=== PATIENT | female | born 1945 | race Asian ===

== ENCOUNTER → 2018-12-28 | Emergency (ER) | payer OTHER ==
--- NOTE | 2018-12-28 06:12 | PDOC ---
ED Treatment Course - LABORATORY CBC & Chemistry Diagram: 12/28/18 03:05 12/28/18 03:05 Medical Decision Making - Medical Decision Making 12/28/18 06:12 Patient seen by the advanced practice provider under my direct supervision. Ancillary testing reviewed as necessary. I agree with plan as outlined by the advanced practice provider. *DC/Admit/Observation/Transfer Diagnosis at time of Disposition: Cystitis - Discharge Dispostion Condition at time of disposition: Stable - Prescriptions Prescriptions: Cephalexin [Keflex] 500 mg PO BID #20 capsule - Referrals - Patient Instructions Printed Discharge Instructions: DI for Acute Cystitis - Post Discharge Activity
--- NOTE | 2018-12-28 06:42 | PDOC ---
History of Present Illness - General Time Seen by Provider: 12/28/18 06:11 - History of Present Illness Initial Comments: 12/28/18 06:39 CHIEF COMPLAINT: HISTORY OF PRESENT ILLNESS: 73 yo F with hx of IDDM and HTN presents to ED with lower abd pain and difficulty urinating x 5 days. Patient states she has experienced discomfort with urination and has not been able to produce much urine. She denies fever, chills, N/V/D but c/o of lower abd discomfort. No recent travel or sick contacts. PAST MEDICAL HISTORY: Denies past medical history FAMILY HISTORY: Denies SOCIAL HISTORY: Denies tobacco, alcohol, illicit drug use. SURGICAL HISTORY: Denies ALLERGIES: No known drug allergies REVIEW OF SYSTEMS General/Constitutional: Denies fever or chills. Denies weakness, weight change. HEENT: Denies change in vision. Denies ear pain or discharge. Denies sore throat. Cardiovascular: Denies chest pain or shortness of breath. Respiratory: Denies cough, wheezing, or hemoptysis. Gastrointestinal: Denies nausea, vomiting, diarrhea or constipation. Denies rectal bleeding. Genitourinary: Dysuria, difficulty urinating. Musculoskeletal: Denies joint or muscle swelling or pain. Denies neck or back pain. Skin and breasts: Denies rash or easy bruising. PHYSICAL EXAM General Appearance: Well-appearing, appropriately dressed. No apparent distress , no intoxication. HEENT: EOMI, PERRLA, normal ENT inspection, normal voice, TMs normal, pharynx normal. No conjunctival pallor. No photophobia, scleral icterus. Neck: Supple. Trachea midline. No tenderness, rigidity, carotid bruit, stridor , lymphadenopathy, or thyromegaly. Respiratory/Chest: Lungs CTAB. No shortness of breath, chest tenderness, respiratory distress, accessory muscle use. No crackles, rales, rhonchi, stridor , wheezing, dullness Cardiovascular: RRR. S1, S2. No JVD, murmur, bradycardia, tachycardia. Vascular Pulses: Dorsalis-Pedis (R): 2+, Dorsalis-Pedis (L): 2+ Gastrointestinal/Abdominal: Mild lower abd tenderness. Normal bowel sounds. Abdomen soft, non-distended. No tenderness or rebound tenderness. No organomegaly, pulsatile mass, guarding, hernia, hepatomegaly, splenomegaly. Lymphatic: No adenopathy, tenderness. Musculoskeletal/Extremities: Normal inspection. FROM of all extremities, normal capillary refill. Pelvis Stable. No CVA tenderness. No tenderness to extremities, pedal edema, swelling, erythema or deformity. Integumentary: Appropriate color, dry, warm. 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 Fully oriented, alert. Appropriate mood/affect. Motor strength 5/5. No appreciable EOM palsy, facial droop or sensory deficit. 12/28/18 06:42 Past History - Past Medical History Allergies/Adverse Reactions: Allergies Allergy/AdvReac Type Severity Reaction Status Date / Time Penicillins Allergy Severe Rash Verified 08/21/15 07:22 Home Medications: Ambulatory Orders Simvastatin [Zocor -] 40 mg PO HS 02/21/13 Sitagliptin Phos/Metformin HCl [Janumet 50-1,000 mg Tablet] 1 tab PO DAILY 02/21 Insulin Glargine,Hum.rec.anlog [Lantus Solostar PEN -] 35 units SQ HS 02/22/13 Aspirin [Aspirin EC] 81 mg PO DAILY 08/20/15 Losartan Potassium 25 mg PO DAILY 08/20/15 Multivit-Min/FA/Lycopen/Lutein [Centrum Silver Tablet] 1 each PO DAILY 08/20/15 Hydrocodone/Acetaminophen [Hydrocodon-Acetaminophen 5-300] 1 each PO Q6H PRN # 60 tablet 08/21/15 Cephalexin [Keflex] 500 mg PO BID #20 capsule 12/28/18 Anemia: No Asthma: No Cancer: No Cardiac Disorders: No CVA: No COPD: No CHF: No Dementia: No Diabetes: Yes (IDDM) GI Disorders: No Disorders: No HTN: Yes Hypercholesterolemia: Yes Liver Disease: No Seizures: No Thyroid Disease: No - Surgical History Abdominal Surgery: No Appendectomy: No Cardiac Surgery: No Cholecystectomy: No Lung Surgery: No Neurologic Surgery: No Orthopedic Surgery: No - Suicide/Smoking/Psychosocial Hx Smoking History: Never smoked Have you smoked in the past 12 months: No Hx Alcohol Use: No Drug/Substance Use Hx: No Substance Use Type: None Hx Substance Use Treatment: No ED Treatment Course - LABORATORY CBC & Chemistry Diagram: 12/28/18 03:05 12/28/18 03:05 Medical Decision Making - Medical Decision Making 12/28/18 06:40 73 yo F with hx of IDDM and HTN presents to ED with lower abd pain and difficulty urinating x 5 days. -cbc, cmp, ua, ucx -straight cath -CTAP straight cath - 25 cc urine output urine 3+ leuks CTAP- results suspicious for cystitis -1 g ceftriaxone IV Will dc with Keflex rx and close f/u with urology. Advised patient to take meds as prescribed and f/u with urology this week; patient verbalized understanding and agrees to plan. *DC/Admit/Observation/Transfer Diagnosis at time of Disposition: Cystitis - Discharge Dispostion Condition at time of disposition: Stable Decision to Admit order: No - Prescriptions Prescriptions: Cephalexin [Keflex] 500 mg PO BID #20 capsule - Referrals - Patient Instructions Printed Discharge Instructions: DI for Acute Cystitis - Post Discharge Activity
[2018-12-28 06:47] LABS: BASO % 0.4 % (0-2.0); HEMATOCRIT 40.4 % (32.4-45.2); HEMOGLOBIN 13.5 GM/dL (10.7-15.3); LYMPH % 12.4 % (8-40); MCH 31.2 pg (25.7-33.7); MCHC 33.4 g/dl (32.0-36.0); MEAN CELL VOLUME 93.4 fl (80-96); MEAN PLT VOLUME 6.6 fl (7.5-11.1); NEUT % 81.2 % (42.8-82.8); PLATELET COUNT 255 K/MM3 (134-434); RBC 4.33 M/mm3 (3.60-5.2); RDW 13.7 % (11.6-15.6); WHITE BLOOD COUNT 12.8 K/mm3 (4.0-10.0)
[2018-12-28 06:48] LABS: URINE COLOR YELLOW
[2018-12-28 06:49] LABS: URINE APPEARANCE CLOUDY; URINE BILIRUBIN 1+ (NEGATIVE); URINE GLUCOSE (UA) NEGATIVE (NEGATIVE); URINE KETONE TRACE (NEGATIVE); URINE LEUK ESTERASE 3+ (NEGATIVE); URINE NITRITE NEGATIVE (NEGATIVE); URINE PROTEIN 3+ (NEGATIVE); URINE UROBILINOGEN 0.2 mg/dL (0.2-1.0)
[2018-12-28 07:19] LABS: EPI CELLS 3+ /HPF (0-5/HPF); URINE BACTERIA 2+ /hpf (NEGATIVE); URINE WBC 30-40 /hpf (0-5)
[2018-12-28 07:20] LABS: HYALINE CASTS 2 /lpf (0-8)
[2018-12-28 07:24] LABS: CALCIUM 9.5 mg/dL (8.5-10.1); POTASSIUM 4.3 mmol/L (3.5-5.1); TOT PROT 7.6 g/dl (6.4-8.2)
[2018-12-28 07:25] LABS: ALBUMIN 3.6 g/dl (3.4-5.0); BILIRUBIN,TOTAL 0.7 mg/dL (0.2-1)
[2018-12-28 07:34] VITALS: BP 120/68; PULSE 80; TEMP 98.4
== END | disposition home or self-care (01) ==
LOC: JER 01:37
PROC: 0T9B70Z Drainage of Bladder with Drainage Device, Via Natural or Artificial Opening (ICD-10-PCS; principal; 2018-12-28)
DX: N30.00 Acute cystitis without hematuria (principal); I10 Essential (primary) hypertension; E11.9 Type 2 diabetes mellitus without complications; Z79.4 Long term (current) use of insulin; E78.00 Pure hypercholesterolemia, unspecified
CPT/HCPCS: 36415; 51701; 74176-TC; 80053; 81003; 85025; 87086; 87186; 99281-25

== ENCOUNTER 2021-09-15 07:59 | Emergency (ER) | payer OTHER ==
[2021-09-15 08:20] VITALS: BP 123/77; PULSE 82; TEMP 98.2; BMI 17.0
[2021-09-15] MEDS ORDERED: MAG HYDROX/AL HYDROX/SIMETH -MYLANTA- ORAL SUSPENSION PO ONE (09:32)
[2021-09-15] MEDS ORDERED: ONDANSETRON 4 MG/2 ML VIAL IVPUSH ONE (09:32)
[2021-09-15] MEDS ORDERED: FAMOTIDINE 20 MG/50 ML IVPB 20 MG/50 ML MG IVPB ONE ×2 (09:32→10:00)
[2021-09-15] MEDS ORDERED: ACETAMINOPHEN 1000 MG/100 ML BAG IVPB ONE (09:37)
[2021-09-15] MEDS ORDERED: MAG HYDROX/AL HYDROX/SIMETH 30 ML UNIT-DOSE CUP ONE (10:00)
[2021-09-15] MEDS ORDERED: ONDANSETRON 4 MG/2 ML VIAL ONE (10:00)
[2021-09-15] MEDS ORDERED: ACETAMINOPHEN INJECTION 100 ML IVPB ONE (10:00)
[2021-09-15 10:03] LABS: BASO % 0.2 % (0-2.0); EOS % 0.1 % (0-4.5); HEMATOCRIT 34.6 % (32.4-45.2); HEMOGLOBIN 11.6 GM/dL (10.7-15.3); LYMPH % 10.6 % (8-40); MCH 29.9 pg (25.7-33.7); MCHC 33.5 g/dl (32.0-36.0); MEAN PLT VOLUME 7.6 fl (7.5-11.1); MONO % 5.6 % (3.8-10.2); NEUT % 83.5 % (42.8-82.8); PLATELET COUNT 154 10^3/uL (134-434); RBC 3.88 M/mm3 (3.60-5.2); RDW 15.9 % (11.6-15.6)
[2021-09-15 10:11] LABS: INR 1.07 (0.83-1.09); PROTHROMBIN TIME (PATIENT) 12.3 SEC (9.7-13.0)
[2021-09-15 10:14] LABS: ACTIVATED PTT 27.3 SECONDS (25.2-36.5)
[2021-09-15 10:25] LABS: BLOOD UREA NITROGEN 18.2 mg/dL (7-18); CALCIUM 8.6 mg/dL (8.5-10.1)
[2021-09-15 10:30] LABS: BILIRUBIN,TOTAL 0.8 mg/dL (0.2-1); TOT PROT 6.7 g/dl (6.4-8.2)
[2021-09-15 14:30] LABS: EPI CELLS 20 /uL (0-25.1); HYALINE CASTS 1 /uL (0-3.1); PH,URINE 5.5 (5.0-8.0); URINE APPEARANCE CLOUDY; URINE BACTERIA >9,000 /uL (0-1359); URINE BILIRUBIN NEGATIVE (NEGATIVE); URINE COLOR YELLOW; URINE GLUCOSE (UA) 3+ (NEGATIVE); URINE KETONE TRACE (NEGATIVE); URINE LEUK ESTERASE TRACE (NEGATIVE); URINE NITRITE NEGATIVE (NEGATIVE); URINE PROTEIN 3+ (NEGATIVE); URINE RBC 426 /uL (0-23.9); URINE WBC 218 /uL (0-25.8)
== END 2021-09-15 15:48 | disposition home or self-care (01) ==
LOC: JER 07:59
PROC: 3E0333Z Introduction of Anti-inflammatory into Peripheral Vein, Percutaneous Approach (ICD-10-PCS; principal; 2021-09-15)
PROC: 3E033GC Introduction of Other Therapeutic Substance into Peripheral Vein, Percutaneous Approach (ICD-10-PCS; 2021-09-15)
PROC: 3E033GC Introduction of Other Therapeutic Substance into Peripheral Vein, Percutaneous Approach (ICD-10-PCS; 2021-09-15)
DX: R07.9 Chest pain, unspecified (principal)
CPT/HCPCS: 36415; 71045-TC-FY; 74177-TC; 76705-TC; 80053; 81003; 82550; 82962; 83690; 84484; 85025; 85610; 85730; 87086; 87186; 93005; 93010; 99285-25; Q9967

== ENCOUNTER 2021-09-18 05:02 | Observation (INO) | payer OTHER ==
[2021-09-18 05:09] VITALS: BMI 24.9
[2021-09-18] MEDS ORDERED: ACETAMINOPHEN 1000 MG/100 ML BAG IVPB ONE ×2 (05:23→13:15)
[2021-09-18 06:50] LABS: INR 0.97 (0.83-1.09); PROTHROMBIN TIME (PATIENT) 11.1 SEC (9.7-13.0)
[2021-09-18 06:59] LABS: BASO % 0.2 % (0-2.0); EOS % 0.6 % (0-4.5); HEMATOCRIT 36.9 % (32.4-45.2); HEMOGLOBIN 12.7 GM/dL (10.7-15.3); LYMPH % 14.8 % (8-40); MCH 30.6 pg (25.7-33.7); MCHC 34.6 g/dl (32.0-36.0); MEAN CELL VOLUME 88.6 fl (80-96); MEAN PLT VOLUME 7.4 fl (7.5-11.1); MONO % 7.4 % (3.8-10.2); PLATELET COUNT 207 10^3/uL (134-434); RBC 4.16 M/mm3 (3.60-5.2); RDW 15.4 % (11.6-15.6); WHITE BLOOD COUNT 10.1 K/mm3 (4.0-10.0)
[2021-09-18 07:01] LABS: ALBUMIN 3.2 g/dl (3.4-5.0)
[2021-09-18 07:06] LABS: BILIRUBIN,TOTAL 0.4 mg/dL (0.2-1); TOT PROT 7.1 g/dl (6.4-8.2)
[2021-09-18 08:44] LABS: EPI CELLS 11 /uL (0-25.1); HYALINE CASTS 0 /uL (0-3.1); URINE APPEARANCE CLEAR; URINE BACTERIA 2 /uL (0-1359); URINE BILIRUBIN NEGATIVE (NEGATIVE); URINE COLOR YELLOW; URINE GLUCOSE (UA) TRACE (NEGATIVE); URINE KETONE NEGATIVE (NEGATIVE); URINE LEUK ESTERASE NEGATIVE (NEGATIVE); URINE NITRITE NEGATIVE (NEGATIVE); URINE PROTEIN 1+ (NEGATIVE); URINE RBC 63 /uL (0-23.9); URINE UROBILINOGEN 0.2 mg/dL (0.2-1.0); URINE WBC 12 /uL (0-25.8)
[2021-09-18] MEDS ORDERED: FAMOTIDINE 20 MG/50 ML IVPB 20 MG/50 ML MG IVPB ONE ×2 (10:45→11:53)
[2021-09-18] MEDS ORDERED: MAG HYDROX/AL HYDROX/SIMETH 30 ML UNIT-DOSE CUP PO ONE (10:45)
[2021-09-18] MEDS ORDERED: MAG HYDROX/AL HYDROX/SIMETH 30 ML UNIT-DOSE CUP ONE (11:53)
[2021-09-18] MEDS ORDERED: LACTATED RINGERS SOLUTION 1,000 ML IV SCH (13:00)
[2021-09-18] MEDS ORDERED: POLYETHYLENE GLYCOL (HEALTHYLAX) 3350 17 GM PACKET ONE ×2 (13:17→22:51)
[2021-09-18] MEDS ORDERED: ACETAMINOPHEN INJECTION 100 ML IVPB ONE (13:17)
[2021-09-18] MEDS: POLYETHYLENE GLYCOL (HEALTHYLAX) 3350 17 GM PACKET PO SCH ×2 (13:29→22:54)
[2021-09-18] MEDS: SENNOSIDES/DOCUSATE COMBO (SENNA PLUS) TABLET (UD) PO SCH ×2 (14:00→22:55)
[2021-09-18] MEDS ORDERED: HEPARIN NA (PORCINE) 5,000 UNITS/ML 1ML VIAL ONE ×2 (14:05→22:52)
[2021-09-18] MEDS: HEPARIN NA (PORCINE) 5,000 UNITS/ML 1ML VIAL SQ SCH ×2 (14:27→22:54)
[2021-09-18] MEDS ORDERED: SUCRALFATE 1 GM TABLET (FP) PO SCH (16:00)
[2021-09-18] MEDS ORDERED: SENNOSIDES 8.6MG TABLET (FP) PO ONE ×2 (19:34→22:52)
[2021-09-18] MEDS ORDERED: ATORVASTATIN CA 20 MG TABLET (FP) PO SCH (22:00)
[2021-09-18] MEDS ORDERED: CEFPODOXIME PROXETIL 100 MG TABLET PO SCH (22:00)
[2021-09-18] MEDS ORDERED: FAMOTIDINE 20 MG/50 ML IVPB 20 MG/50 ML MG IVPB SCH (22:00)
[2021-09-18] MEDS ORDERED: PANTOPRAZOLE 40 MG TABLET ONE (22:52)
[2021-09-18] MEDS ORDERED: ATORVASTATIN CA 20 MG TABLET (FP) ONE (22:52)
[2021-09-18] MEDS: PANTOPRAZOLE 40 MG TABLET PO SCH (22:55)
[2021-09-18] MEDS: SIMETHICONE 80 MG TAB.CHEW (FP) PO SCH (23:41)
[2021-09-19] MEDS: CEFPODOXIME PROXETIL 200 MG TABLET [NF] PO SCH ×2 (00:16→10:24)
[2021-09-19] MEDS: METOCLOPRAMIDE HCL 10 MG TABLET (FP) PO SCH ×3 (06:06→16:56)
[2021-09-19] MEDS: HEPARIN NA (PORCINE) 5,000 UNITS/ML 1ML VIAL SQ SCH ×2 (06:07→14:54)
[2021-09-19 09:25] LABS: HEMATOCRIT 35.1 % (32.4-45.2); HEMOGLOBIN 11.8 GM/dL (10.7-15.3); MCHC 33.7 g/dl (32.0-36.0); MEAN CELL VOLUME 89.2 fl (80-96); MEAN PLT VOLUME 7.4 fl (7.5-11.1); PLATELET COUNT 244 10^3/uL (134-434); RBC 3.94 M/mm3 (3.60-5.2); RDW 15.6 % (11.6-15.6); WHITE BLOOD COUNT 8.6 K/mm3 (4.0-10.0)
[2021-09-19 09:49] LABS: CALCIUM 8.6 mg/dL (8.5-10.1)
[2021-09-19 09:50] LABS: BLOOD UREA NITROGEN 13.6 mg/dL (7-18)
[2021-09-19 09:53] LABS: PHOSPHOROUS 2.7 mg/dL (2.5-4.9)
[2021-09-19] MEDS ORDERED: amLODIPine BESYLATE 10 MG TABLET (FP) PO SCH (10:00)
[2021-09-19] MEDS ORDERED: LOSARTAN POTASSIUM 50 MG TABLET PO SCH (10:00)
[2021-09-19] MEDS: PANTOPRAZOLE 40 MG TABLET PO SCH (10:22)
[2021-09-19] MEDS: SENNOSIDES/DOCUSATE COMBO (SENNA PLUS) TABLET (UD) PO SCH (10:23)
[2021-09-19] MEDS: POLYETHYLENE GLYCOL (HEALTHYLAX) 3350 17 GM PACKET PO SCH (10:23)
[2021-09-19] MEDS: SIMETHICONE 80 MG TAB.CHEW (FP) PO SCH ×3 (10:23→17:11)
[2021-09-19] MEDS: INSULIN SLIDING SCALE (NOVOLOG) 1 VIAL SQ SCH ×2 (11:58→16:54)
[2021-09-19] MEDS ORDERED: INSULIN (LEVEMIR) 100 UNITS/ML UNITS SQ SCH (12:00)
[2021-09-19 18:05] VITALS: BP 135/57; PULSE 94; TEMP 99
== END 2021-09-19 18:42 | disposition home or self-care (01) ==
LOC: JER 05:02 → JERBED 11:25 → J5S 23:28
PROVIDERS: ADMIT Internal Medicine
PROC: 3E033NZ Introduction of Analgesics, Hypnotics, Sedatives into Peripheral Vein, Percutaneous Approach (ICD-10-PCS; principal; 2021-09-18)
PROC: 3E033GC Introduction of Other Therapeutic Substance into Peripheral Vein, Percutaneous Approach (ICD-10-PCS; 2021-09-18)
PROC: 3E023GC Introduction of Other Therapeutic Substance into Muscle, Percutaneous Approach (ICD-10-PCS; 2021-09-18)
PROC: 3E013VG Introduction of Insulin into Subcutaneous Tissue, Percutaneous Approach (ICD-10-PCS; 2021-09-18)
DX: N39.0 Urinary tract infection, site not specified (principal); I10 Essential (primary) hypertension; E78.5 Hyperlipidemia, unspecified; E11.9 Type 2 diabetes mellitus without complications; Z88.0 Allergy status to penicillin; Z29.9 Encounter for prophylactic measures, unspecified; R10.9 Unspecified abdominal pain
CPT/HCPCS: 36415; 74174-TC; 80048; 80053; 81003; 82962; 83605; 83735; 84100; 84484; 85025; 85027; 85610; 85730; 86850; 86900; 86901; 87086; 93005; 93010; 96361; 96365; 96372; 96375; 96376; 99285-25; C9803; G0378; J1644; Q9967; U0003; U0005

== ENCOUNTER 2021-09-22 19:05 | Observation (INO) | payer OTHER ==
[2021-09-22 19:57] VITALS: BMI 25.4
[2021-09-22] MEDS ORDERED: MECLIZINE HCL 25 MG TABLET (FP) PO ONE ×2 (20:26→23:41)
[2021-09-22] MEDS ORDERED: ACETAMINOPHEN 1000 MG/100 ML BAG IVPB ONE (21:02)
[2021-09-22] MEDS ORDERED: ACETAMINOPHEN INJECTION 100 ML IVPB ONE (21:07)
[2021-09-22] MEDS ORDERED: MECLIZINE HCL 25 MG TABLET (FP) ONE ×2 (21:07→23:53)
[2021-09-22 21:33] LABS: BASO % 0.3 % (0-2.0); EOS % 0.5 % (0-4.5); HEMATOCRIT 34.3 % (32.4-45.2); HEMOGLOBIN 11.8 GM/dL (10.7-15.3); LYMPH % 7.8 % (8-40); MCH 30.4 pg (25.7-33.7); MCHC 34.4 g/dl (32.0-36.0); MEAN CELL VOLUME 88.4 fl (80-96); MEAN PLT VOLUME 6.5 fl (7.5-11.1); MONO % 4.2 % (3.8-10.2); NEUT % 87.2 % (42.8-82.8); PLATELET COUNT 315 10^3/uL (134-434); RBC 3.88 M/mm3 (3.60-5.2); RDW 15.8 % (11.6-15.6); WHITE BLOOD COUNT 16.6 K/mm3 (4.0-10.0)
[2021-09-22 21:35] LABS: EPI CELLS 9 /uL (0-25.1); HYALINE CASTS 0 /uL (0-3.1); URINE APPEARANCE CLEAR; URINE BACTERIA 565 /uL (0-1359); URINE BILIRUBIN NEGATIVE (NEGATIVE); URINE COLOR YELLOW; URINE GLUCOSE (UA) NEGATIVE (NEGATIVE); URINE KETONE NEGATIVE (NEGATIVE); URINE LEUK ESTERASE TRACE (NEGATIVE); URINE NITRITE NEGATIVE (NEGATIVE); URINE PROTEIN 1+ (NEGATIVE); URINE RBC 9 /uL (0-23.9); URINE UROBILINOGEN 0.2 mg/dL (0.2-1.0); URINE WBC 62 /uL (0-25.8)
[2021-09-22 21:51] LABS: CALCIUM 8.5 mg/dL (8.5-10.1)
[2021-09-22 21:52] LABS: ALBUMIN 3.2 g/dl (3.4-5.0); BLOOD UREA NITROGEN 18.8 mg/dL (7-18)
[2021-09-22 21:55] LABS: CREATININE 1.2 mg/dL (0.55-1.3)
[2021-09-22 21:56] LABS: BILIRUBIN,TOTAL 0.5 mg/dL (0.2-1)
[2021-09-22 21:57] LABS: TOT PROT 7.3 g/dl (6.4-8.2)
[2021-09-23] MEDS ORDERED: LACTATED RINGERS SOLUTION 1000 ML INFUS.BAG IV ONE (00:17)
[2021-09-23] MEDS ORDERED: LIDOCAINE 5% TOPICAL PATCH TP ONE (02:28)
[2021-09-23] MEDS ORDERED: ACETAMINOPHEN 325 MG TABLET (FP) PO PRN (02:31)
[2021-09-23] MEDS ORDERED: LIDOCAINE 5% TOPICAL PATCH ONE (02:56)
[2021-09-23] MEDS: INSULIN SLIDING SCALE (NOVOLOG) 1 VIAL SQ SCH ×4 (07:43→23:35)
[2021-09-23 08:27] LABS: BASO % 0.3 % (0-2.0); EOS % 0.5 % (0-4.5); HEMATOCRIT 33.4 % (32.4-45.2); HEMOGLOBIN 11.1 GM/dL (10.7-15.3); LYMPH % 12.1 % (8-40); MCH 29.7 pg (25.7-33.7); MCHC 33.3 g/dl (32.0-36.0); MEAN CELL VOLUME 89.4 fl (80-96); MEAN PLT VOLUME 6.8 fl (7.5-11.1); MONO % 4.1 % (3.8-10.2); PLATELET COUNT 321 10^3/uL (134-434); RBC 3.73 M/mm3 (3.60-5.2); RDW 15.4 % (11.6-15.6); WHITE BLOOD COUNT 11.3 K/mm3 (4.0-10.0)
[2021-09-23 08:51] LABS: CALCIUM 8.5 mg/dL (8.5-10.1)
[2021-09-23 08:52] LABS: BLOOD UREA NITROGEN 15.9 mg/dL (7-18); MAGNESIUM 2.2 mg/dL (1.8-2.4)
[2021-09-23 08:55] LABS: PHOSPHOROUS 3.4 mg/dL (2.5-4.9)
[2021-09-23 08:56] LABS: TOT PROT 6.8 g/dl (6.4-8.2)
[2021-09-23 08:57] LABS: BILIRUBIN,TOTAL 0.6 mg/dL (0.2-1)
[2021-09-23] MEDS ORDERED: MECLIZINE HCL 25 MG TABLET (FP) PO SCH (10:00)
[2021-09-23] MEDS ORDERED: CEFPODOXIME PROXETIL 200 MG PO SCH (10:00)
[2021-09-23] MEDS ORDERED: PANTOPRAZOLE 40 MG TABLET ONE (11:24)
[2021-09-23] MEDS ORDERED: ASPIRIN COATED 81 MG TABLET.EC ONE (11:24)
[2021-09-23] MEDS ORDERED: MECLIZINE HCL 25 MG TABLET (FP) ONE (11:24)
[2021-09-23] MEDS ORDERED: POLYETHYLENE GLYCOL (HEALTHYLAX) 3350 17 GM PACKET ONE (11:24)
[2021-09-23] MEDS ORDERED: ENOXAPARIN NA (PORCINE) 40 MG/0.4 ML DISP.SYRIN SQ ONE (11:24)
[2021-09-23] MEDS: POLYETHYLENE GLYCOL (HEALTHYLAX) 3350 17 GM PACKET PO SCH (11:41)
[2021-09-23] MEDS: ENOXAPARIN NA (PORCINE) 40 MG/0.4 ML DISP.SYRIN SQ SCH (11:41)
[2021-09-23] MEDS: ASPIRIN COATED 81 MG TABLET.EC PO SCH (11:41)
[2021-09-23] MEDS: PANTOPRAZOLE 40 MG TABLET PO SCH ×2 (11:42→22:57)
[2021-09-23] MEDS ORDERED: LIDOCAINE PATCH REMOVAL MC ONE (15:00)
[2021-09-23] MEDS ORDERED: LOSARTAN POTASSIUM 50 MG TABLET PO ONE (18:09)
[2021-09-23] MEDS ORDERED: LOSARTAN POTASSIUM 50 MG TABLET ONE (19:17)
[2021-09-23] MEDS ORDERED: ATORVASTATIN CA 20 MG TABLET (FP) PO SCH (22:00)
[2021-09-23] MEDS: MECLIZINE HCL 12.5 MG TABLET PO SCH (22:57)
[2021-09-23] MEDS: INSULIN (LEVEMIR) 100 UNITS/ML UNITS SQ SCH (23:34)
[2021-09-24] MEDS: INSULIN (LEVEMIR) 100 UNITS/ML UNITS SQ SCH (06:28)
[2021-09-24] MEDS: INSULIN SLIDING SCALE (NOVOLOG) 1 VIAL SQ SCH ×3 (06:29→17:38)
[2021-09-24] MEDS ORDERED: INSULIN (LEVEMIR) 100 UNITS/ML UNITS SQ SCH (07:35)
[2021-09-24 09:39] LABS: BASO % 0.4 % (0-2.0); EOS % 2.2 % (0-4.5); HEMATOCRIT 33.2 % (32.4-45.2); HEMOGLOBIN 11.3 GM/dL (10.7-15.3); LYMPH % 36.5 % (8-40); MCH 30.8 pg (25.7-33.7); MCHC 34.1 g/dl (32.0-36.0); MEAN CELL VOLUME 90.2 fl (80-96); MEAN PLT VOLUME 6.4 fl (7.5-11.1); NEUT % 50.9 % (42.8-82.8); PLATELET COUNT 328 10^3/uL (134-434); RBC 3.68 M/mm3 (3.60-5.2); RDW 15.8 % (11.6-15.6); WHITE BLOOD COUNT 5.3 K/mm3 (4.0-10.0)
[2021-09-24 09:50] LABS: ACTIVATED PTT 29.4 SECONDS (25.2-36.5); INR 1.02 (0.83-1.09); PROTHROMBIN TIME (PATIENT) 11.7 SEC (9.7-13.0)
[2021-09-24] MEDS ORDERED: LOSARTAN POTASSIUM 50 MG TABLET PO SCH (10:00)
[2021-09-24 10:10] LABS: CALCIUM 9.3 mg/dL (8.5-10.1); CREATININE 1.1 mg/dL (0.55-1.3)
[2021-09-24 10:11] LABS: ALBUMIN 2.9 g/dl (3.4-5.0); BLOOD UREA NITROGEN 21.4 mg/dL (7-18); MAGNESIUM 2.1 mg/dL (1.8-2.4); TOT PROT 6.8 g/dl (6.4-8.2)
[2021-09-24 10:12] LABS: BILIRUBIN,TOTAL 0.4 mg/dL (0.2-1)
[2021-09-24 10:16] VITALS: PULSE 74
[2021-09-24] MEDS: POLYETHYLENE GLYCOL (HEALTHYLAX) 3350 17 GM PACKET PO SCH (11:23)
[2021-09-24] MEDS: ASPIRIN COATED 81 MG TABLET.EC PO SCH (11:23)
[2021-09-24] MEDS: MECLIZINE HCL 12.5 MG TABLET PO SCH (11:23)
[2021-09-24] MEDS: PANTOPRAZOLE 40 MG TABLET PO SCH (11:23)
[2021-09-24] MEDS: ENOXAPARIN NA (PORCINE) 40 MG/0.4 ML DISP.SYRIN SQ SCH (11:24)
[2021-09-24 15:54] VITALS: BP 141/71; TEMP 98.4
== END 2021-09-24 19:30 | disposition home or self-care (01) ==
LOC: JER 19:05 → UNDOADMOB 09-23 00:39 → JERBED 09-23 00:39 → INTOOBSV 09-23 00:39 → JERBED 09-23 12:57 → J8W 09-23 20:50
PROVIDERS: ADMIT Hospitalist
PROC: 3E033NZ Introduction of Analgesics, Hypnotics, Sedatives into Peripheral Vein, Percutaneous Approach (ICD-10-PCS; principal; 2021-09-23)
PROC: 3E023GC Introduction of Other Therapeutic Substance into Muscle, Percutaneous Approach (ICD-10-PCS; 2021-09-23)
PROC: 3E013VG Introduction of Insulin into Subcutaneous Tissue, Percutaneous Approach (ICD-10-PCS; 2021-09-23)
PROC: 3E0337Z Introduction of Electrolytic and Water Balance Substance into Peripheral Vein, Percutaneous Approach (ICD-10-PCS; 2021-09-23)
PROC: 3E033NZ Introduction of Analgesics, Hypnotics, Sedatives into Peripheral Vein, Percutaneous Approach (ICD-10-PCS; 2021-09-23)
PROC: 3E023GC Introduction of Other Therapeutic Substance into Muscle, Percutaneous Approach (ICD-10-PCS; 2021-09-23)
PROC: 3E013VG Introduction of Insulin into Subcutaneous Tissue, Percutaneous Approach (ICD-10-PCS; 2021-09-23)
PROC: 3E0337Z Introduction of Electrolytic and Water Balance Substance into Peripheral Vein, Percutaneous Approach (ICD-10-PCS; 2021-09-23)
DX: E10.43 Type 1 diabetes mellitus with diabetic autonomic (poly)neuropathy (principal); E03.9 Hypothyroidism, unspecified; K29.70 Gastritis, unspecified, without bleeding; D72.829 Elevated white blood cell count, unspecified; W18.39XA Other fall on same level, initial encounter; Y93.89 Activity, other specified; Y92.89 Other specified places as the place of occurrence of the external cause; Z29.9 Encounter for prophylactic measures, unspecified; R53.83 Other fatigue; R42 Dizziness and giddiness; R62.7 Adult failure to thrive; Z88.0 Allergy status to penicillin
CPT/HCPCS: 36415; 70450-TC; 71046-TC-FY; 71101-TC-LT-FY; 80053; 81003; 82962; 83690; 83735; 84100; 84484; 85025; 85610; 85730; 87040; 87086; 87186; 93005; 93010; 96372; 96374; 97116-GP; 97161-GP; 99285-25; C9803; G0378; U0003; U0005

== ENCOUNTER → 2023-12-13 | Day surgery (SDC) | payer OTHER ==
[2023-12-09 10:39] VITALS: BMI 27.1
[~2023-12-13] MED LIST: CLINDAMYCIN PHOSPHATE 600 MG/4 ML VIAL ONE; DEXAMETHASONE SOD PHOSPHATE 4 MG/1 ML VIAL ONE; FENTANYL CITRATE/PF 50 MCG/ML VIAL ONE; KETOROLAC TROMETHAMINE 30 MG/1 ML VIAL ONE; LACTATED RINGERS SOLUTION 1,000 ML IV SCH; ONDANSETRON 4 MG/2 ML VIAL IVPUSH PRN; ONDANSETRON 4 MG/2 ML VIAL ONE; PROPOFOL 20 ML ONE; SUCCINYLCHOLINE CHLORIDE 200 MG/10 ML SYRINGE ONE; ceFAZolin SODIUM 1 GM VIAL ONE; ePHEDrine SULFATE 50 MG/1 ML AMPULE ONE; oxyCODONE HCL 5 MG TABLET PO PRN
[2023-12-13] MEDS: ceFAZolin SODIUM 1 GM VIAL IVPB ONE (10:42)
[2023-12-13] MEDS: GENTAMICIN SO4 80 MG/2 ML VIAL IVPB ONE (10:42)
[2023-12-13 12:46] VITALS: TEMP 96.6
[2023-12-13 13:26] VITALS: BP 154/87; PULSE 93; RESP 20
== END | disposition home or self-care (01) ==
LOC: JASU-SURG 04:16
PROVIDERS: ATTEND Urology
PROC: BT14YZZ Fluoroscopy of Kidneys, Ureters and Bladder using Other Contrast (ICD-10-PCS; 2023-12-13)
PROC: BT14YZZ Fluoroscopy of Kidneys, Ureters and Bladder using Other Contrast (ICD-10-PCS; principal; 2023-12-13 10:00)
DX: N39.0 Urinary tract infection, site not specified (principal); Z87.440 Personal history of urinary (tract) infections
CPT/HCPCS: 76000-TC-FY; 82962; 94760

== ENCOUNTER 2024-02-10 15:12 | Emergency (ER) | payer OTHER ==
[2024-02-10 15:34] VITALS: BP 181/91; PULSE 97; RESP 18; TEMP 98.2; BMI 27.4
[2024-02-10] MEDS ORDERED: KETOROLAC TROMETHAMINE 30 MG/1 ML VIAL ONE (16:10)
[2024-02-10] MEDS: KETOROLAC TROMETHAMINE 30 MG/1 ML VIAL IM ONE (16:19)
[2024-02-10] MEDS ORDERED: MORPHINE SULFATE 2 MG/ML SYRINGE ONE ×2 (16:38→17:51)
[2024-02-10] MEDS: morphine CARPU-JECT 2 MG/1 ML DISP.SYRIN IVPUSH ONE ×2 (16:42→17:51)
== END 2024-02-10 18:51 | disposition home or self-care (01) ==
LOC: JER 15:12
PROC: 3E033NZ Introduction of Analgesics, Hypnotics, Sedatives into Peripheral Vein, Percutaneous Approach (ICD-10-PCS; principal; 2024-02-10)
PROC: 3E033NZ Introduction of Analgesics, Hypnotics, Sedatives into Peripheral Vein, Percutaneous Approach (ICD-10-PCS; 2024-02-10)
PROC: 3E0133Z Introduction of Anti-inflammatory into Subcutaneous Tissue, Percutaneous Approach (ICD-10-PCS; 2024-02-10)
DX: R10.2 Pelvic and perineal pain (principal); R10.30 Lower abdominal pain, unspecified
CPT/HCPCS: 99284-25